=== PATIENT | male | born 1960 | race Caucasian/White ===

== ENCOUNTER 2017-05-09 06:48 | Inpatient (IN) | payer BC ==
[2017-05-08 14:28] LABS: ADD MAN DIFF? NO
[2017-05-08 14:33] LABS: BASOPHIL # 0.1 10^3/ul (0.0-0.1); BASOPHILS % 0.6 % (0.0-2.0); EOSINOPHILS # 0.1 10^3/ul (0.0-0.5); EOSINOPHILS % 1.3 % (0.0-7.0); HEMATOCRIT 42.7 % (42.0-52.0); HEMOGLOBIN 14.6 g/dl (14.0-18.0); LYMPHOCYTES # 2.8 10^3/ul (0.8-2.9); LYMPHOCYTES % 32.7 % (15.0-51.0); MEAN CORPUSCULAR HEMOGLOBIN 30.4 pg (29.0-33.0); MEAN CORPUSCULAR HGB CONC 34.2 g/dl (32.0-37.0); MEAN PLATELET VOLUME 9.9 fl (7.4-10.4); MONOCYTE # 0.8 10^3/ul (0.3-0.9); MONOCYTES % 9.8 % (0.0-11.0); NEUTROPHIL # 4.7 10^3/ul (1.6-7.5); NEUTROPHILS % 55.1 % (39.0-77.0); PLATELET COUNT 229 10^3/UL (140-415); RED CELL DISTRIBUTION WIDTH 13.2 % (11.5-14.5)
[2017-05-08 14:33] LABS: WHITE BLOOD COUNT 8.5 10^3/ul (4.8-10.8)
[2017-05-08 14:56] LABS: INR 0.89; PARTIAL THROMBOPLASTIN TIME 25.8 Sec (25.0-35.0); PROTIME 12.1 Sec (11.9-14.9); PT RATIO 0.9
[2017-05-08 14:57] LABS: ALANINE AMINOTRANSFERASE 46 IU/L (13-69); ALBUMIN 4.1 g/dl (3.3-4.9); ALBUMIN/GLOBULIN RATIO 1.36; ALKALINE PHOSPHATASE 73 IU/L (42-121); ANION GAP 13 (8-16); ASPARTATE AMINO TRANSFERASE 31 IU/L (15-46); BILIRUBIN,INDIRECT 0.2 mg/dl (0-1.1); BILIRUBIN,TOTAL 0.2 mg/dl (0.2-1.3); BLOOD UREA NITROGEN 22 mg/dl (7-20); CALCIUM 9.2 mg/dl (8.4-10.2); CARBON DIOXIDE 26 mmol/L (21-31); CHLORIDE 109 mmol/L (97-110); CREATININE 0.84 mg/dl (0.61-1.24); GLUCOSE 93 mg/dl (70-220); POTASSIUM 4.3 mmol/L (3.5-5.1); SODIUM 144 mmol/L (135-144); TOTAL PROTEIN 7.1 g/dl (6.1-8.1)
[2017-05-09] MEDS: TRANEXAMIC ACID 1,000 MG in D5W 100 ML AT CLOSURE X1 IVPB (06:30)
[2017-05-09] MEDS: CEFAZOLIN 2 GM/50 ML (PMX) 50 ML IVPB (06:30)
[2017-05-09] MEDS: TRANEXAMIC ACID 1,000 MG in D5W 100 ML AT INCISION X1 IVPB (06:30)
[2017-05-09] MEDS: LACTATED RINGER'S 1,000 ML IV* (06:30)
[2017-05-09] MEDS ORDERED: BACITRACIN 50000 UNITS INJ (06:49)
[2017-05-09] MEDS ORDERED: POLYMYXIN B 500000 UNIT INJ (06:51)
[2017-05-09] MEDS ORDERED: CEFAZOLIN 1 GM INJ ×2 (07:00→08:51)
[2017-05-09] MEDS ORDERED: BUPIVACAINE 0.5% (SDV) 30 ML INJ (08:51)
[2017-05-09] MEDS ORDERED: GLYCOPYRROLATE 0.4 MG INJ (08:51)
[2017-05-09] MEDS ORDERED: FENTAnyl 50 MCG/ML VIAL (08:51)
[2017-05-09] MEDS ORDERED: PROPOFOL 20 ML (08:51)
[2017-05-09] MEDS ORDERED: ONDANSETRON 4 MG INJ (08:51)
[2017-05-09] MEDS ORDERED: ROCURONIUM 50 MG INJ (08:51)
[2017-05-09] MEDS ORDERED: MIDAZOLAM 1 MG/ML 2 ML INJ (08:51)
[2017-05-09] MEDS ORDERED: DEXAMETHASONE 4 MG/ML 1 ML INJ (08:51)
[2017-05-09] MEDS ORDERED: NEOSTIGMINE 3 MG/3 ML SYRINGE (08:51)
[2017-05-09] MEDS ORDERED: ROPIVACAINE 0.5 % 30 ML VIAL (09:22)
[2017-05-09] MEDS: POLYMYXIN/BACITRACIN 1L IRRIG IRR (10:08)
[2017-05-09] MEDS ORDERED: LABETALOL HCL 20MG INJ IV (10:30)
[2017-05-09] MEDS ORDERED: MEPERIDINE 25 MG INJ IV (10:30)
[2017-05-09] MEDS ORDERED: IPRATROPIUM (NEB) 0.5 MG/2.5 ML AMP HHN (10:30)
[2017-05-09] MEDS ORDERED: OXYCODONE/ACETAMINOPHEN (5/325) TAB PO ×2 (10:30)
[2017-05-09] MEDS ORDERED: EPHEDrine SULFATE 50 MG/5 ML SYG IV (10:30)
[2017-05-09] MEDS ORDERED: DIPHENHYDRAMINE 50 MG INJ IV (10:30)
[2017-05-09] MEDS ORDERED: TRIMETHOBENZAMIDE 100 MG/ML VIAL IM (10:30)
[2017-05-09] MEDS ORDERED: MIDAZOLAM 1 MG/ML 2 ML INJ IV (10:30)
[2017-05-09] MEDS ORDERED: hydrALAzine 20 MG INJ IV (10:30)
[2017-05-09] MEDS ORDERED: ONDANSETRON 4 MG INJ IV (10:30)
[2017-05-09] MEDS ORDERED: HYDROmorphONE (0.2 MG/ML) 10ML SYG IV ×3 (10:30)
[2017-05-09] MEDS ORDERED: ALBUTEROL 0.083% (NEB) 2.5 MG/3 ML AMP HHN (10:30)
[2017-05-09] MEDS ORDERED: FENTAnyl 50 MCG/ML VIAL IV ×3 (10:30)
[2017-05-09] MEDS ORDERED: MAGNESIUM HYDROXIDE 30ML CUP PO (12:00)
[2017-05-09] MEDS ORDERED: oxyCODONE 5 MG TAB PO (12:00)
[2017-05-09] MEDS ORDERED: SENNA/DOCUSATE NA (8.6MG/50MG) TAB PO (12:00)
[2017-05-09] MEDS ORDERED: NALOXONE (0.4 MG/ML) INJ IV (12:00)
[2017-05-09] MEDS ORDERED: KETOROLAC 15 MG INJ IV (12:00)
[2017-05-09] MEDS ORDERED: BISACODYL 10 MG SUPP PR (12:00)
[2017-05-09] MEDS ORDERED: BETHANECHOL 25 MG TAB PO (12:00)
[2017-05-09] MEDS ORDERED: NA PHOSPHATE/BIPHOS 133 ML ENEMA PR (12:00)
[2017-05-09] MEDS ORDERED: ZOLPIDEM 5 MG TAB PO (12:00)
[2017-05-09] MEDS ORDERED: NACL 0.9% 3 ML SYG IV (12:00)
[2017-05-09] MEDS ORDERED: DIPHENHYDRAMINE 50 MG INJ IM (12:00)
[2017-05-09] MEDS ORDERED: SUGAMMADEX SODIUM 200 MG/2 ML VIAL IV (12:12)
[2017-05-09] MEDS: SOD CHLORIDE 0.9% 1,000 ML IV ×2 (12:52→20:47)
[2017-05-09] MEDS: ASPIRIN (EC) 325 MG TAB PO (12:53)
[2017-05-09] MEDS: CEFAZOLIN 1 GM/50 ML (PMX) 50 ML IVPB ×2 (12:53→20:48)
[2017-05-09] MEDS: ONDANSETRON 4 MG INJ IV ×2 (12:54→18:00)
[2017-05-09] MEDS: DOCUSATE SODIUM 100 MG CAP PO (12:54)
[2017-05-09] MEDS: ATORVASTATIN 40 MG TAB PO (20:49)
[2017-05-10] MEDS: CEFAZOLIN 1 GM/50 ML (PMX) 50 ML IVPB (04:15)
[2017-05-10 05:11] LABS: WHITE BLOOD COUNT 13.3 10^3/ul (4.8-10.8)
[2017-05-10 05:11] LABS: BASOPHILS % 0.2 % (0.0-2.0); HEMATOCRIT 34.9 % (42.0-52.0); HEMOGLOBIN 11.9 g/dl (14.0-18.0); LYMPHOCYTES # 1.3 10^3/ul (0.8-2.9); LYMPHOCYTES % 9.6 % (15.0-51.0); MEAN CORPUSCULAR HEMOGLOBIN 30.1 pg (29.0-33.0); MEAN CORPUSCULAR HGB CONC 34.1 g/dl (32.0-37.0); MEAN CORPUSCULAR VOLUME 88.1 fl (82.0-101.0); MEAN PLATELET VOLUME 10.4 fl (7.4-10.4); MONOCYTE # 1.1 10^3/ul (0.3-0.9); NEUTROPHIL # 10.8 10^3/ul (1.6-7.5); NEUTROPHILS % 81.5 % (39.0-77.0); PLATELET COUNT 196 10^3/UL (140-415); RED BLOOD COUNT 3.96 10^6/ul (4.70-6.10); RED CELL DISTRIBUTION WIDTH 13.2 % (11.5-14.5)
[2017-05-10 05:12] LABS: ADD MAN DIFF? NO
[2017-05-10] MEDS: ONDANSETRON 4 MG INJ IV ×2 (05:54)
[2017-05-10 05:58] LABS: ANION GAP 13 (8-16); BLOOD UREA NITROGEN 17 mg/dl (7-20); CALCIUM 8.4 mg/dl (8.4-10.2); CARBON DIOXIDE 24 mmol/L (21-31); CHLORIDE 110 mmol/L (97-110); CREATININE 0.83 mg/dl (0.61-1.24); GLUCOSE 133 mg/dl (70-220); POTASSIUM 4.5 mmol/L (3.5-5.1); SODIUM 142 mmol/L (135-144)
[2017-05-10] MEDS: PANTOPRAZOLE (EC) 40 MG TAB PO (05:59)
[2017-05-10 06:41] LABS: ADD UMIC YES; UR ASCORBIC ACID NEGATIVE (NEGATIVE); UR BILIRUBIN (Dip) NEGATIVE (NEGATIVE); UR BLOOD (Dip) 1+ mg/dL (NEGATIVE); UR CLARITY CLEAR (CLEAR); UR COLOR YELLOW (YELLOW); UR GLUCOSE (Dip) NEGATIVE (NEGATIVE); UR KETONES (Dip) NEGATIVE (NEGATIVE); UR LEUKOCYTE ESTERASE (Dip) NEGATIVE Leu/ul (NEGATIVE); UR NITRITE (Dip) NEGATIVE (NEGATIVE); UR RBC 2 /HPF (0-5); UR SPECIFIC GRAVITY (Dip) 1.017 (1.003-1.030); UR TOTAL PROTEIN (Dip) NEGATIVE (NEGATIVE); UR UROBILINOGEN (Dip) NEGATIVE (NEGATIVE); UR WBC 1 /HPF (0-5)
[2017-05-10] MEDS: oxyCODONE 5 MG TAB PO ×3 (09:09→18:09)
[2017-05-10] MEDS: ASPIRIN (EC) 325 MG TAB PO (09:10)
[2017-05-10] MEDS: DOCUSATE SODIUM 100 MG CAP PO (09:10)
[2017-05-10] MEDS: MULTIVITAMINS THERAPEUTIC TAB PO (09:10)
[2017-05-10] MEDS: CELECOXIB 200 MG CAP PO (09:10)
[2017-05-10] MEDS: CHOLECALCIFEROL 1,000 UNIT TAB PO (09:10)
[2017-05-10] MEDS: FERROUS FUMARATE (SR) TAB PO (09:10)
[2017-05-10] MEDS: METOPROLOL (XL) 50 MG TAB PO (09:11)
[2017-05-10 11:07] LABS: CHOL/HDL RATIO 3.2 RATIO; HDL CHOLESTEROL 40 mg/dl (28-71); LDL CHOLESTEROL,CALCULATED 78 mg/dl; TRIGLYCERIDES 53 mg/dl (0-149)
[2017-05-10 11:07] LABS: CHOLESTEROL 129 mg/dl (100-200)
[2017-05-10] MEDS: SOD CHLORIDE 0.9% 1,000 ML IV (12:48)
== END 2017-05-10 18:41 | disposition home health service (06) | DRG 470 ==
LOC: REC 06:48 → MS1 13:50
PROC: 0SRD069 Replacement of Left Knee Joint with Oxidized Zirconium on Polyethylene Synthetic Substitute, Cemented, Open Approach (ICD-10-PCS; principal; 2017-05-09 08:30)
DX: M17.12 Unilateral primary osteoarthritis, left knee (principal); I10 Essential (primary) hypertension; E78.5 Hyperlipidemia, unspecified; I25.2 Old myocardial infarction; E66.01 Morbid (severe) obesity due to excess calories; I25.10 Atherosclerotic heart disease of native coronary artery without angina pectoris; G62.9 Polyneuropathy, unspecified; Z68.42 Body mass index [BMI] 45.0-49.9, adult
CPT/HCPCS: 73560; 80048; 80053; 80061; 81001; 85025; 85610; 85730; 86850; 86900; 86901; 87081; 87086; 88304; 93005; 97116; 97162; 97530